=== PATIENT | female | born 1945 | race Caucasian/White ===

== ENCOUNTER 2017-12-30 19:42 | Emergency (ER) | payer MEDICARE ==
[2017-12-30] MEDS ORDERED: Labetalol IV* 5 MG/ML 20 ML VIAL IV PUSH ONE (22:24)
[2017-12-30] MEDS ORDERED: Ondansetron INJ* 2 MG/ML VIAL IV ONE (22:25)
[2017-12-30] MEDS ORDERED: Morphine INJ* 4 MG/ML 1 ML SYRINGE (NEW SYRINGE VERSION) IV ONE (22:25)
[2017-12-30 22:51] LABS: Hematocrit 34 % (35-47); Hemoglobin 11.7 g/dl (12.0-16.0); Mean Corpuscular HGB Conc 34 g/dl (31-36); Mean Corpuscular Hemoglobin 30 pg (27-31); Mean Corpuscular Volume 88 fL (80-97); Mean Platelet Volume 7.8 um3 (7.4-10.4); Platelet Count 183 10^3/ul (150-450); Red Cell Distribution Width 15 % (10.5-15); White Blood Count 6.7 10^3/ul (3.5-10.8)
[2017-12-30 22:59] LABS: INR 1.04 (0.77-1.02)
[2017-12-30] MEDS ORDERED: Morphine VIAL* 4 MG/ML VIAL (1 ml vial) IV ONE (23:00)
[2017-12-30] MEDS ORDERED: Ondansetron INJ* 2 MG/ML VIAL ONE (23:07)
[2017-12-30 23:12] LABS: EGFR Non-African American 47.8 (>60)
[2017-12-30] MEDS ORDERED: Morphine INJ* 10 MG/ML 1 ML CARPUJECT IV ONE (23:21)
[2017-12-30 23:42] LABS: ABS Basophils 0 10^3/ul (0-0.2); ABS Eosinophils 0 10^3/ul (0-0.6); ABS Lymphocytes 0.9 10^3/ul (1.0-4.8); ABS Monocytes 1.5 10^3/ul (0-0.8); ABS Neutrophils 4.2 10^3/ul (1.5-7.7); ABS Nucleated RBC 0 10^3/ul; Eosinophil % 0.7 % (0-6); Nucleated Red Blood Cells % 0
[2017-12-31] MEDS ORDERED: NS 0.9% 1000 ML* 1,000 ML IV ONE (00:10)
[2017-12-31] MEDS ORDERED: Heparin DRIP 25,000 UNITS(*) 25,000 UNITS/500 ML BAG IV SCH (00:45)
[2017-12-31] MEDS ORDERED: Heparin VIAL(*) 5000 UNITS/ML VIAL (FIVE THOUSAND) IV SCH (01:00)
--- NOTE | 2017-12-31 01:08 | ED ---
Michael Whitten Thomas, scribed for Cheryle Brenner MD on 12/30/17 at 2201 . Lower Extremity - HPI Summary HPI Summary: The patient is a 72 year old female complaining of right foot swelling, discoloration, and intermittent pain for the last 2-3 weeks. The patient reports black discoloration of the fifth toe for the last week. She had an accidental fall earlier today and complains of a small laceration to the corner of her right eye. The patient denies loss of consciousness or syncope. Pt denies sensory loss. - History of Current Complaint Chief Complaint: EDExtremityLower Stated Complaint: RT FT SWOLLEN Time Seen by Provider: 12/30/17 21:53 Hx Obtained From: Patient Mechanism Of Injury: Fall From A Standing Position Onset/Duration: Still Present Severity Currently: Moderate Pain Intensity: 0 Pain Scale Used: 0-10 Numeric Timing: Constant Location: Is Discrete @ - right foot pain Associated Signs And Symptoms: Positive: Swelling, Redness. 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 rt ankle surgery - Immunization History Date of Tetanus Vaccine: PT STATES UNSURE Date of Influenza Vaccine: NONE Infectious Disease History: Yes Infectious Disease History: Denies: Traveled Outside the [place] in Last 30 Days - Family History Known Family History: Positive: Other - ovarian cancer - Social History Alcohol Use: Rare Hx Substance Use: No Substance Use Type: Reports: None Hx Tobacco Use: Yes Smoking Status (MU): Heavy Every Day Tobacco Smoker Type: Cigarettes Review of Systems Negative: Fever Positive: Other - Right foot pain, swelling Positive: Other - Right foot erythema, discoloration, laceration to right eye Neurological: Negative - LOC, syncope All Other Systems Reviewed And Are Negative: Yes Physical Exam - Summary Physical Exam Summary: VITAL SIGNS: Reviewed. GENERAL: Patient is a well-developed and nourished female who is lying comfortable in the stretcher. Patient is not in any acute respiratory distress. HEAD AND FACE: No signs of trauma. No ecchymosis, hematomas or skull depressions. No sinus tenderness. EYES: PERRLA, EOMI x 2, No injected conjunctiva, no nystagmus. EARS: Hearing grossly intact. Ear canals and tympanic membranes are within normal limits. MOUTH: Oropharynx within normal limits. NECK: Supple, trachea is midline, no adenopathy, no JVD, no carotid bruit, no c- spine tenderness, neck with full ROM. CHEST: Symmetric, no tenderness at palpation LUNGS: Clear to auscultation bilaterally. No wheezing or crackles. CVS: Regular rate and rhythm, S1 and S2 present, no murmurs or gallops appreciated. ABDOMEN: Soft, non-tender. No signs of distention. No rebound no guarding, and no masses palpated. Bowel sounds are normal. 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 She has coldness of the toes and forefoot compared to rest of foot. She has bilateral edema +1 to 2. I was not able to palpate pulses from the femoral down. There is coldness from the forefoot to the toes. The rest of the limb is warm from the forefoot up. The skin is mottled on the forefoot and the toes. There is poor capillary refill. On Using Doppler, patient does have right femoral pulse. NEURO: Alert and oriented x 3. No acute neurological deficits. Speech is normal and follows commands. SKIN: Dry and warm Triage Information Reviewed: Yes Vital Signs On Initial Exam: Initial Vitals Temp Pulse Resp BP Pulse Ox 98.4 F 81 20 155/64 92 12/30/17 19:45 12/30/17 19:45 12/30/17 19:45 12/30/17 19:45 12/30/17 19:45 Vital Signs Reviewed: Yes Diagnostics - Vital Signs Vital Signs Temp Pulse Resp BP Pulse Ox 12/30/17 19:45 98.4 F 81 20 155/64 92 - Laboratory Lab Results: Lab Results 12/30/17 12/30/17 12/30/17 Range/Units 22:45 22:45 22:45 WBC 6.7 (3.5-10.8) 10^3/ul RBC 3.90 L (4.0-5.4) 10^6/ul Hgb 11.7 L (12.0-16.0) g/dl Hct 34 L (35-47) % MCV 88 (80-97) fL MCH 30 (27-31) pg MCHC 34 (31-36) g/dl RDW 15 (10.5-15) % Plt Count 183 (150-450) 10^3/ul MPV 7.8 (7.4-10.4) um3 Neut % (Auto) 62.9 (38-83) % Lymph % (Auto) 14.0 L (25-47) % [place] % (Auto) 21.8 H (0-7) % Eos % (Auto) 0.7 (0-6) % Baso % (Auto) 0.6 (0-2) % Absolute Neuts (auto) 4.2 (1.5-7.7) 10^3/ul Absolute Lymphs (auto) 0.9 L (1.0-4.8) 10^3/ul Absolute Monos (auto) 1.5 H (0-0.8) 10^3/ul Absolute Eos (auto) 0 (0-0.6) 10^3/ul Absolute Basos (auto) 0 (0-0.2) 10^3/ul Absolute Nucleated RBC 0 10^3/ul Nucleated RBC % 0 Large Platelets Present Hem Pathologist Commnt Pending INR (Anticoag Therapy) 1.04 H (0.77-1.02) APTT 28.0 (26.0-36.3) seconds Sodium 124 L (139-145) mmol/L Potassium 3.5 (3.5-5.0) mmol/L Chloride 92 L (101-111) mmol/L Carbon Dioxide 23 (22-32) mmol/L Anion Gap 9 (2-11) mmol/L BUN 15 (6-24) mg/dL Creatinine 1.12 H (0.51-0.95) mg/dL Est GFR ( Amer) 61.5 (>60) Est GFR (Non-Af Amer) 47.8 (>60) BUN/Creatinine Ratio 13.4 (8-20) Glucose 105 H (70-100) mg/dL Lactic Acid (0.5-2.0) mmol/L Calcium 9.1 (8.6-10.3) mg/dL Magnesium 2.0 (1.9-2.7) mg/dL Total Bilirubin 0.50 (0.2-1.0) mg/dL AST 39 (13-39) U/L ALT 17 (7-52) U/L Alkaline Phosphatase 43 (34-104) U/L Total Creatine Kinase 1291 H (10-223) U/L C-Reactive Protein 83.59 H (< 5.00) mg/L Total Protein 6.8 (6.4-8.9) g/dL Albumin 4.0 (3.2-5.2) g/dL Globulin 2.8 (2-4) g/dL Albumin/Globulin Ratio 1.4 (1-3) 04/17/18 Range/Units 22:45 WBC (3.5-10.8) 10^3/ul RBC (4.0-5.4) 10^6/ul Hgb (12.0-16.0) g/dl Hct (35-47) % MCV (80-97) fL MCH (27-31) pg MCHC (31-36) g/dl RDW (10.5-15) % Plt Count (150-450) 10^3/ul MPV (7.4-10.4) um3 Neut % (Auto) (38-83) % Lymph % (Auto) (25-47) % [place] % (Auto) (0-7) % Eos % (Auto) (0-6) % Baso % (Auto) (0-2) % Absolute Neuts (auto) (1.5-7.7) 10^3/ul Absolute Lymphs (auto) (1.0-4.8) 10^3/ul Absolute Monos (auto) (0-0.8) 10^3/ul Absolute Eos (auto) (0-0.6) 10^3/ul Absolute Basos (auto) (0-0.2) 10^3/ul Absolute Nucleated RBC 10^3/ul Nucleated RBC % Large Platelets Hem Pathologist Commnt INR (Anticoag Therapy) (0.77-1.02) APTT (26.0-36.3) seconds Sodium (139-145) mmol/L Potassium (3.5-5.0) mmol/L Chloride (101-111) mmol/L Carbon Dioxide (22-32) mmol/L Anion Gap (2-11) mmol/L BUN (6-24) mg/dL Creatinine (0.51-0.95) mg/dL Est GFR ( Amer) (>60) Est GFR (Non-Af Amer) (>60) BUN/Creatinine Ratio (8-20) Glucose (70-100) mg/dL Lactic Acid 0.7 (0.5-2.0) mmol/L Calcium (8.6-10.3) mg/dL Magnesium (1.9-2.7) mg/dL Total Bilirubin (0.2-1.0) mg/dL AST (13-39) U/L ALT (7-52) U/L Alkaline Phosphatase (34-104) U/L Total Creatine Kinase (10-223) U/L C-Reactive Protein (< 5.00) mg/L Total Protein (6.4-8.9) g/dL Albumin (3.2-5.2) g/dL Globulin (2-4) g/dL Albumin/Globulin Ratio (1-3) Result Diagrams: 12/30/17 22:45 12/30/17 22:45 Lab Statement: Any lab studies that have been ordered have been reviewed, and results considered in the medical decision making process. - Radiology Foot XR Xray Interpretation: No Acute Changes - No acute changes, no gas. Pending final report. Radiology Interpretation Completed By: ED Physician - EKG 22:32 EKG Interpretation: Sinus arrhthmia at 76 BPM. Re-Evaluation - Re-Evaluation First Eval Re-Evaluation Time: 00:45 Comment: Results discussed. The patient will be transferred. Lower Extremity Course/Dx - Course Assessment/Plan: The patient is a 72 year old female complaining of black discoloration to her right foot for the last week. Bloodwork and EKG were obtained. The patient was given IV fluids, Labealol, morphine, and Zofran. Foot XR shows nothing acute and no gas. I spoke with the transfer center and Dr. Cummings, ED physician, who will be the accepting physician. Regarding starting the heparin drip or not, I spoke with Dr. Jennifer Javier, vascular surgery. Dr. Javier states that the patient most likely has a subactue process; however, she does recommend starting heparin. The patient will be starting on the IV heparin protocol. The patient will be transferred by ambulance to [facility]. - Diagnoses Provider Diagnoses: Ischemic foot - Physician Notifications Discussed Care Of Patient With: Emiliano Time Discussed With Above Provider: 00:35 Instructed by Provider To: Other - I spoke with the transfer center and Dr. Cummings, ED physician, who will be the accepting physician. Regarding starting the heparin drip or not, at 00:[address] Jennifer Javier, vascular surgery. Dr. Javier states that the patient most likely has a subactue process; however, she does recommend starting heparin. I spoke with the transfer center and Dr. Cummings, ED physician, who will be the accepting physician. Regarding starting the heparin drip or not, I spoke with Dr. Jennifer Javier, vascular surgery. Dr. Javier states that the patient most likely has a subactue process; however, she does recommend starting heparin. - Critical Care Time Critical Care Time: 30-74 min Discharge - Sign-Out/Discharge Documenting (check all that apply): Discharge - The patient is transferred to [facility] ED - Discharge Plan Condition: Stable Disposition: TRANS [facility] FAC Discharge Disposition Comment: The patient is transferred to [facility] ED Referrals: Naida ROMERO,Ochoa Johnston [Primary Care Provider] - - Billing Disposition and Condition Condition: STABLE Disposition: EMTALA The documentation as recorded by the Michael zavala Thomas accurately reflects the service I personally performed and the decisions made by me, Cheryle Brenner MD.
[2017-12-31 03:16] VITALS: BP 166/83
--- NOTE | 2017-12-31 07:42 | RAD ---
HISTORY: Right foot pain COMPARISONS: None VIEWS: 3, Frontal, lateral, and oblique views of the right foot FINDINGS: BONE DENSITY: There is diffuse osteopenia. BONES: The patient is status post internal fixation of the distal tibia and fibula. There is no appreciable hardware failure or osteolysis. There is no displaced fracture. 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 ALIGNMENT: There is mild hallux valgus. SOFT TISSUES: Unremarkable. OTHER FINDINGS: None. IMPRESSION: 1. OSTEOPENIA. 2. OSTEOARTHRITIS. 3. STATUS POST INTERNAL FIXATION OF THE ANKLE. 4. NO ACUTE OSSEOUS INJURY. THE DEGREE OF OSTEOPENIA MAY MAKE A NONDISPLACED FRACTURE RADIOGRAPHICALLY OCCULT. IF SYMPTOMS PERSIST, RECOMMEND REPEAT IMAGING.
--- NOTE | 2018-01-01 07:17 | PN ---
Progress Note - Progress Note Date of Service: 12/30/17 Note: Pt. seen in the ER 12/30/17 for foot discoloration and swelling. Final read of xray report per radiology: IMPRESSION: 1. OSTEOPENIA. 2. OSTEOARTHRITIS. 3. STATUS POST INTERNAL FIXATION OF THE ANKLE. 4. NO ACUTE OSSEOUS INJURY. THE DEGREE OF OSTEOPENIA MAY MAKE A NONDISPLACED FRACTURE RADIOGRAPHICALLY OCCULT. IF SYMPTOMS PERSIST, RECOMMEND REPEAT IMAGING. Pt. was transferred for suspected ischemic limb. No further f.u needed at this time.
== END 2017-12-31 03:14 | disposition short-term general hospital (02) ==
LOC: ED 19:42
DX: I70.235 Atherosclerosis of native arteries of right leg with ulceration of other part of foot (principal); M79.89 Other specified soft tissue disorders; F17.210 Nicotine dependence, cigarettes, uncomplicated
CPT/HCPCS: 36415; 80053; 82550; 83605; 83735; 85025; 85060; 85610; 85730; 86140; 93005; 96374; 96375; 99285; J1644; J2270; J2405